=== PATIENT | female | born 1985 | race Caucasian/White ===

== ENCOUNTER 2023-11-03 18:11 | Inpatient (IN) ==
[2023-11-03] MEDS: SODIUM CHLORIDE 0.9% 1,000 ML IV ONE ×2 (18:52→20:15)
[2023-11-03 19:01] LABS: Basophils # (auto) 0.07 K/uL (0.00-0.20); Basophils % (auto) 0.4 %; Eosinophils # (auto) 0.05 K/uL (0.00-0.50); Eosinophils % (auto) 0.3 %; Hematocrit (blood only) 41.2 % (37.0-47.0); Hemoglobin 13.8 g/dl (12.0-16.0); Immature Granulocytes # (auto) 0.15 K/uL (0.01-0.20); Immature Granulocytes % (auto) 0.8 %; Lymphocytes # (auto) 0.91 K/uL (1.20-3.40); Lymphocytes % (auto) 4.9 %; Mean Corpuscular Hemoglobin 29.3 pg (25.0-34.0); Mean Corpuscular Hgb Conc 33.5 g/dL (32.0-36.0); Mean Corpuscular Volume 87.5 fL (80.0-100.0); Mean Platelet Volume 8.7 fL (9.4-12.4); Monocytes # (auto) 1.33 K/uL (0.11-0.59); Monocytes % (auto) 7.1 %; Neutrophils # (auto) 16.19 K/uL (1.40-6.50); Neutrophils % (auto) 86.5 %; Platelet Count 326 K/uL (130-400); RDW Coefficient of Variation 11.8 % (11.5-14.5); RDW Standard Deviation 37.9 fL (36.4-46.3); Red Blood Count 4.71 M/uL (4.20-5.40)
[2023-11-03 19:05] LABS: Appearance Urine Clear (Clear); Bacteria Urine Automated 1+ (None Seen); Bilirubin Urine Negative (Negative); Blood Urine Negative (Negative); Cast Urine Automated 0-2 /lpf (0-2); Color Urine Yellow; Epithelial Cell Urine Auto 0-2 /hpf (0-2); Glucose Urine UA Negative (Negative); Ketones Urine Negative (Negative); Leukocyte Esterase Urine 1+ (Negative); Nitrite Urine Negative (Negative); Protein Urine Trace (Negative); RBC Urine Automated 0-2 /hpf (0-2); Specific Gravity Urine 1.011 (1.000-1.030); Urobilinogen Urine Negative (Negative); WBC Urine Automated 21-50 /hpf (0-5); pH Urine 8.5 (4.5-7.5)
[2023-11-03 19:20] LABS: Albumin Globulin Ratio 1.5 (0.9-2); Albumin Level 4.4 gm/dl (3.4-5.0); BUN Creatinine Ratio 8.9 (10-20); Bilirubin,Total 1.1 mg/dl (0.2-1.0); Calcium 9.4 mg/dl (8.6-10.3); Est GFR (African American) 82.4 ml/min; Est GFR (Non-African American) 71.1 ml/min; Potassium 3.3 mmol/L (3.5-5.1); Total Protein 7.4 gm/dl (6.0-8.3)
[2023-11-03 19:26] LABS: Troponin I High Sensitivity 9.2 pg/ml (0-14)
--- NOTE | 2023-11-03 19:26 | Emergency Department Note ---
Impression & Plan Pyelonephritis, Sepsis ED Provider Note Provider: Hari Fortune MD DATE OF SERVICE: 11/03/2023 CHIEF COMPLAINT: Urinary symptoms, fever HISTORY OF PRESENT ILLNESS: Patient is a 38-year-old female referred from urgent care today due to developing urinary urgency frequency and dysuria over the past week. Today had left leg pain and increased fatigue as well as a fever 103 went to walk-in urgent care referred here. She has had UTIs and kidney infections in the past although last was about 12 years ago. Prior hysterectomy. No syncope reported. No vomiting reported. Denies chest pain or shortness of breath. Noted to be tachycardic upon arrival. Endorses some chills and fever earlier. Pain was so severe she had to take a dose of Percocet that she had previously. Did take Tylenol earlier as well. Pain in the left abdomen to the left and mid back region. [place] short of breath earlier but not currently. PAST MEDICAL HISTORY: As noted above MEDICATIONS: Reviewed home medications SOCIAL HISTORY: Smoker PHYSICAL EXAM: GENERAL: alert and oriented in no acute distress on stretcher Head: normocephalic and atraumatic EYES: No injection, discharge or icterus. NECK: Trachea midline. ENT: Mucous membranes pink and moist. LUNGS: Airway patent. No retractions. Breath sounds clear with good air entry bilaterally. HEART: Regular rate and rhythm. No chest wall tenderness ABDOMEN: Soft with some slight left abdominal pain. SKIN: Acyanotic, warm, dry, without rashes EXTREMITIES: Without swelling, tenderness or deformity NEUROLOGICAL: No focal deficits. No aphasia. No facial droop or slurred speech. Normal strength and tone in the extremities. Sensation to gross touch normal. Ambulatory. EK beats minute sinus tachycardia. No PVC or PAC. No acute ST segment elevation or depression with a QTc of 404. CONTINUOUS CARDIAC MONITORING: was ordered and showed a heart rate of 100s - 130s bpm in sinus tachycardia Patient's laboratory studies and imaging reviewed. Differential includes Renal colic, UTI, appendicitis, diverticulitis, mesenteric ischemia, aortic pathology, infections, inflammatory bowel disease, PUD, biliary pathology, as well as other pathologies. IMPRESSION/MEDICAL DECISION MAKING: Patient tachycardic upon arrival. 2.5 L of IV fluid ordered. Blood obtained including lactate and cultures. Lactate not elevated. Mild hyponatremia and hypokalemia but not severe. Normal renal function. No evidence of hepatitis/transaminitis. UA does appear concerning for infection. negative. White count of 18.7 concerning for developing pyelonephritis and sepsis picture. Given her pain to exclude kidney stone or other intra-abdominal process CT abdomen pelvis was ordered. Given a dose of IV ceftriaxone for antibiotic coverage. Troponin & EKG completed showing a sinus tachycardia --not SVT or other arrhythmia. Received again IV fluid and afebrile here but still tachycardic. Believe likely septic from pyelonephritis. CT abdomen pelvis report without significant acute findings noted. Patient on reevaluation appears somewhat fatigued and heart rate minimally improved around 110. Given what appears to be sepsis with pyelonephritis and discussed with her that while she is fairly young, given her significant symptoms further care here at the hospital. Hospitalist team contacted. DIAGNOSIS: Pyelonephritis, sepsis, tachycardia DISPOSITION: Hospitalist will evaluate Patient was agreeable with this plan. Past Med/Surg History Social History Smoking Status: Current every day smoker Feels Safe at Home: Yes Allergies Allergies Allergy/AdvReac Type Severity Reaction Status Date / Time No Known Allergies Allergy Unknown Verified 11/03/23 19:06 Home Meds Home Medications Medication Instructions Recorded Confirmed acetaminophen 500 mg tablet 1,000 mg PO Q6H PRN PAIN/FEVER 11/03/23 11/03/23 (Tylenol Extra Strength) dextroamphetamine-amphetamine 30 30 mg PO BID 11/03/23 11/03/23 mg tablet ibuprofen 200 mg tablet 600 mg PO Q6H PRN PAIN/FEVER 11/03/23 11/03/23 Results & Data (ED) Vital Signs Vital Signs - 24 hr 11/03/23 18:21 11/03/23 18:48 11/03/23 18:53 Temperature 37.2 C Temperature Source Temporal Artery Scan Pulse Rate 128 H 128 H Pulse Rate [Apical] 122 H Pulse Strength [Apical] Normal Respiratory Rate 18 18 Respiratory Effort / Characteristics Non-Labored Spontaneous Non-Labored Spontaneous Respiratory Depth Normal Normal Respiratory Pattern Regular Blood Pressure 122/76 Blood Pressure [Right Arm] 136/86 Blood Pressure Mean 91 Blood Pressure Mean [Right Arm] 102 Blood Pressure Position Sitting Pulse Oximetry 97 96 Oxygen Delivery Method Room Air Room Air Sepsis Recent Fever Within 48 Hours No Sepsis New/Unexplained Change in Mental Status N/A Sepsis Action Taken by Nursing No Action Required 11/03/23 18:55 11/03/23 19:59 11/03/23 21:21 Temperature 36.8 C 37.1 C Temperature Source Oral Oral Pulse Rate Pulse Rate [Apical] 109 H 101 H Pulse Strength [Apical] Normal Respiratory Rate 19 22 Respiratory Effort / Characteristics Non-Labored Spontaneous Non-Labored Spontaneous Respiratory Depth Normal Normal Respiratory Pattern Regular Blood Pressure Blood Pressure [Right Arm] 118/86 148/87 H Blood Pressure Mean Blood Pressure Mean [Right Arm] 96 107 Blood Pressure Position Pulse Oximetry 96 97 98 Oxygen Delivery Method Room Air Room Air Room Air Sepsis Recent Fever Within 48 Hours Sepsis New/Unexplained Change in Mental Status Sepsis Action Taken by Nursing 11/03/23 22:25 Temperature Temperature Source Pulse Rate Pulse Rate [Apical] 112 H Pulse Strength [Apical] Respiratory Rate 18 Respiratory Effort / Characteristics Non-Labored Spontaneous Respiratory Depth Normal Respiratory Pattern Blood Pressure Blood Pressure [Right Arm] 108/69 Blood Pressure Mean Blood Pressure Mean [Right Arm] 82 Blood Pressure Position Pulse Oximetry 98 Oxygen Delivery Method Room Air Sepsis Recent Fever Within 48 Hours Sepsis New/Unexplained Change in Mental Status Sepsis Action Taken by Nursing Laboratory Data 11/03/23 18:44 11/03/23 18:44 Lab Results 11/03/23 11/03/23 11/03/23 Range/Units 18:35 18:43 18:44 WBC 18.70 H (4.8-10.8) K/ul RBC 4.71 (4.20-5.40) M/uL Hgb 13.8 (12.0-16.0) g/dl Hct 41.2 (37.0-47.0) % MCV 87.5 (80.0-100.0) fL MCH 29.3 (25.0-34.0) pg MCHC 33.5 (32.0-36.0) g/dL RDW Std Deviation 37.9 (36.4-46.3) fL RDW Coeff of Alicia 11.8 (11.5-14.5) % Plt Count 326 (130-400) K/uL MPV 8.7 L (9.4-12.4) fL Immature Gran % (Auto) 0.8 % Neut % (Auto) 86.5 % Lymph % (Auto) 4.9 % [place] % (Auto) 7.1 % Eos % (Auto) 0.3 % Baso % (Auto) 0.4 % Neut # (Auto) 16.19 H (1.40-6.50) K/uL Lymph # (Auto) 0.91 L (1.20-3.40) K/uL [place] # (Auto) 1.33 H (0.11-0.59) K/uL Eos # (Auto) 0.05 (0.00-0.50) K/uL Baso # (Auto) 0.07 (0.00-0.20) K/uL Immature Gran # (Auto) 0.15 (0.01-0.20) K/uL PT 11.4 (9.0-12.0) Seconds INR 1.0 (0.9-1.1) APTT 28 (21-31) Seconds PTT Ratio 1.0 Sodium 134 L (136-145) mmol/L Potassium 3.3 L (3.5-5.1) mmol/L Chloride 100 (98-107) mmol/L Carbon Dioxide 25 (21-32) mmol/L Anion Gap 9 (3-11) BUN 9 (6-23) mg/dl Creatinine 1.01 (0.6-1.2) mg/dl Est Cr Clr Drug Dosing 77.0 ml/min Est GFR ( Amer) 82.4 ml/min Est GFR (Non-Af Amer) 71.1 ml/min BUN/Creatinine Ratio 8.9 L (10-20) Glucose 123 H (70-99(Fasting)) mg/dl Lactate (0.4-2.0) mmol/L Calcium 9.4 (8.6-10.3) mg/dl Total Bilirubin 1.1 H (0.2-1.0) mg/dl AST 14 (13-39) U/L ALT 14 (7-52) U/L Alkaline Phosphatase 92 (34-104) U/L Troponin I High Sens 9.2 (0-14) pg/ml Total Protein 7.4 (6.0-8.3) gm/dl Albumin 4.4 (3.4-5.0) gm/dl Globulin 3.0 (2.5-4.0) gm/dl Albumin/Globulin Ratio 1.5 (0.9-2) Procalcitonin 0.26 (0-0.5) ng/ml Urine Color Yellow Urine Appearance Clear (Clear) Urine pH 8.5 H (4.5-7.5) Ur Specific [place] 1.011 (1.000-1.030) Urine Protein Trace H (Negative) Urine Glucose (UA) Negative (Negative) Urine Ketones Negative (Negative) Urine Blood Negative (Negative) Urine Nitrite Negative (Negative) Urine Bilirubin Negative (Negative) Urine Urobilinogen Negative (Negative) Ur Leukocyte Esterase 1+ H (Negative) Urine WBC (Auto) 21-50 H (0-5) /hpf Urine RBC (Auto) 0-2 (0-2) /hpf U Hyaline Cast (Auto) 0-2 (0-2) /lpf U Epithel Cells (Auto) 0-2 (0-2) /hpf Urine Bacteria (Auto) 1+ H (None Seen) POC Ur Test NEG (NEG) 11/03/23 Range/Units 18:46 WBC (4.8-10.8) K/ul RBC (4.20-5.40) M/uL Hgb (12.0-16.0) g/dl Hct (37.0-47.0) % MCV (80.0-100.0) fL MCH (25.0-34.0) pg MCHC (32.0-36.0) g/dL RDW Std Deviation (36.4-46.3) fL RDW Coeff of Alicia (11.5-14.5) % Plt Count (130-400) K/uL MPV (9.4-12.4) fL Immature Gran % (Auto) % Neut % (Auto) % Lymph % (Auto) % [place] % (Auto) % Eos % (Auto) % Baso % (Auto) % Neut # (Auto) (1.40-6.50) K/uL Lymph # (Auto) (1.20-3.40) K/uL [place] # (Auto) (0.11-0.59) K/uL Eos # (Auto) (0.00-0.50) K/uL Baso # (Auto) (0.00-0.20) K/uL Immature Gran # (Auto) (0.01-0.20) K/uL PT (9.0-12.0) Seconds INR (0.9-1.1) APTT (21-31) Seconds PTT Ratio Sodium (136-145) mmol/L Potassium (3.5-5.1) mmol/L Chloride (98-107) mmol/L Carbon Dioxide (21-32) mmol/L Anion Gap (3-11) BUN (6-23) mg/dl Creatinine (0.6-1.2) mg/dl Est Cr Clr Drug Dosing ml/min Est GFR ( Amer) ml/min Est GFR (Non-Af Amer) ml/min BUN/Creatinine Ratio (10-20) Glucose (70-99(Fasting)) mg/dl Lactate 1.6 (0.4-2.0) mmol/L Calcium (8.6-10.3) mg/dl Total Bilirubin (0.2-1.0) mg/dl AST (13-39) U/L ALT (7-52) U/L Alkaline Phosphatase (34-104) U/L Troponin I High Sens (0-14) pg/ml Total Protein (6.0-8.3) gm/dl Albumin (3.4-5.0) gm/dl Globulin (2.5-4.0) gm/dl Albumin/Globulin Ratio (0.9-2) Procalcitonin (0-0.5) ng/ml Urine Color Urine Appearance (Clear) Urine pH (4.5-7.5) Ur Specific [place] (1.000-1.030) Urine Protein (Negative) Urine Glucose (UA) (Negative) Urine Ketones (Negative) Urine Blood (Negative) Urine Nitrite (Negative) Urine Bilirubin (Negative) Urine Urobilinogen (Negative) Ur Leukocyte Esterase (Negative) Urine WBC (Auto) (0-5) /hpf Urine RBC (Auto) (0-2) /hpf U Hyaline Cast (Auto) (0-2) /lpf U Epithel Cells (Auto) (0-2) /hpf Urine Bacteria (Auto) (None Seen) POC Ur Test (NEG) Administered Medications Discontinued Medications Sodium Chloride (Nss) 500 mls @ 999 mls/hr IV .Q31M STA Stop: 11/03/23 18:57 Last Infusion: 11/03/23 20:15 Dose: Infused Documented By: Admin: 11/03/23 19:33 Dose: 999 mls/hr Documented By: FORTINO Sodium Chloride (Nss) 1,000 mls @ 999 mls/hr IV .Q1H1M ONE Stop: 11/03/23 19:30 Last Infusion: 11/03/23 19:28 Dose: Infused Documented By: Admin: 11/03/23 18:52 Dose: 999 mls/hr Documented By: FORTINO Sodium Chloride (Nss) 1,000 mls @ 999 mls/hr IV .Q1H1M ONE Stop: 11/03/23 20:24 Last Infusion: 11/03/23 21:36 Dose: Infused Documented By: Admin: 11/03/23 20:15 Dose: 999 mls/hr Documented By: FORTINO Ceftriaxone Sodium (Rocephin) 2,000 mg in 50 mls @ 100 mls/hr IV NOW STA Stop: 11/03/23 19:58 Last Infusion: 11/03/23 20:15 Dose: Infused Documented By: Admin: 11/03/23 19:59 Dose: 100 mls/hr Documented By: FORTINO Imaging Data Radiologist's Impression: Abdomen/Pelvis CT 11/03/23 18:29 Exam(s): CT ABDOMEN + PELVIS Without Contrast EXAM: CT Abdomen and Pelvis Without Intravenous Contrast CLINICAL HISTORY: Reason for exam: UTI/flank pain. TECHNIQUE: Axial computed tomography images of the abdomen and pelvis without intravenous contrast. CTDI is 23.65 mGy and DLP is 1090.67 mGy-cm. Automated exposure control was utilized for the study. A dose lowering technique was utilized adhering to the principles of ALARA. COMPARISON: 09/10/11 FINDINGS: Lung bases: Unremarkable. No mass. No consolidation. ABDOMEN: Liver: Hepatomegaly. Gallbladder and bile ducts: Unremarkable. No calcified stones. No ductal dilation. Pancreas: Unremarkable. No ductal dilation. Spleen: Unremarkable. No splenomegaly. Adrenals: Unremarkable. No mass. Kidneys and ureters: Unremarkable. No hydronephrosis or radiopaque stones. Stomach and bowel: Sigmoid diverticulosis. No mucosal thickening. No bowel obstruction. PELVIS: Appendix: Normal appendix. Bladder: Unremarkable. No stones. Reproductive: Hysterectomy. ABDOMEN and PELVIS: Intraperitoneal space: Unremarkable. No free air. No significant fluid collection. Bones/joints: No acute fracture or dislocation. Soft tissues: Small fat-containing umbilical hernia. Vasculature: Unremarkable. No abdominal aortic aneurysm. Lymph nodes: Unremarkable. No enlarged lymph nodes. IMPRESSION: No acute findings in the abdomen or pelvis. Electronically signed by: Olamide Reno M.D. 11/03/23 20:22 PM Discharge Plan Visit Data Chief Complaint: Urinary Symptoms Stated Complaint: UTI, PAIN STOMACH, LEGS, FEVER ED Provider: Hari Fortune Discharge Problem: Pyelonephritis, Sepsis Patient Disposition: Being Evaluated by Hospitalist Forms Stand Alone Forms: [facility] Prescriptions Prescriptions: No Action acetaminophen [Tylenol Extra Strength] 500 mg Tablet 1,000 mg PO Q6H PRN (Reason: PAIN/FEVER) dextroamphetamine-amphetamine 30 mg tablet 30 mg PO BID ibuprofen 200 mg Tablet 600 mg PO Q6H PRN (Reason: PAIN/FEVER) Referrals Referrals: PCP,NO [Primary Care Provider] -
[2023-11-03 19:28] LABS: Partial Thromboplastin Time 28 Seconds (21-31); Prothrombin Time 11.4 Seconds (9.0-12.0)
[2023-11-03] MEDS: SODIUM CHLORIDE 0.9% 500 ML IV STA (19:33)
[2023-11-03] MEDS: cefTRIAXone SODIUM 2,000 MG/50 ML BAG IV STA (19:59)
[2023-11-03 20:11] LABS: Albumin Globulin Ratio 1.5 (0.9-2); Albumin Level 4.1 gm/dl (3.4-5.0); BUN Creatinine Ratio 9.3 (10-20); Creatinine Clr Calc Pharmacy 80.2 ml/min; Est GFR (African American) 86.5 ml/min; Est GFR (Non-African American) 74.6 ml/min; Globulin 2.8 gm/dl (2.5-4.0); Magnesium 1.5 mg/dl (1.7-2.4); Potassium 3.2 mmol/L (3.5-5.1); Total Protein 6.9 gm/dl (6.0-8.3)
--- NOTE | 2023-11-03 20:22 | CT Scan Report ---
Exam(s): CT ABDOMEN + PELVIS Without Contrast EXAM: CT Abdomen and Pelvis Without Intravenous Contrast CLINICAL HISTORY: Reason for exam: UTI/flank pain. TECHNIQUE: Axial computed tomography images of the abdomen and pelvis without intravenous contrast. CTDI is 23.65 mGy and DLP is 1090.67 mGy-cm. Automated exposure control was utilized for the study. A dose lowering technique was utilized adhering to the principles of ALARA. COMPARISON: 09/10/11 FINDINGS: Lung bases: Unremarkable. No mass. No consolidation. ABDOMEN: Liver: Hepatomegaly. Gallbladder and bile ducts: Unremarkable. No calcified stones. No ductal dilation. Pancreas: Unremarkable. No ductal dilation. Spleen: Unremarkable. No splenomegaly. Adrenals: Unremarkable. No mass. Kidneys and ureters: Unremarkable. No hydronephrosis or radiopaque stones. Stomach and bowel: Sigmoid diverticulosis. No mucosal thickening. No bowel obstruction. PELVIS: Appendix: Normal appendix. Bladder: Unremarkable. No stones. Reproductive: Hysterectomy. ABDOMEN and PELVIS: Intraperitoneal space: Unremarkable. No free air. No significant fluid collection. Bones/joints: No acute fracture or dislocation. Soft tissues: Small fat-containing umbilical hernia. Vasculature: Unremarkable. No abdominal aortic aneurysm. Lymph nodes: Unremarkable. No enlarged lymph nodes. IMPRESSION: No acute findings in the abdomen or pelvis. Electronically signed by: Olamide Reno M.D. 11/03/23 20:22 PM
--- NOTE | 2023-11-03 22:37 | History & Physical Report ---
Date of Service November 03, 2023 Assessment & Plan (1) Sepsis: Plan: 38-year-old female with past medical history significant for ADHD comes because of severe flank pains bilateral left greater than right since yesterday and today she was having high fevers and chills and not feeling well and some burning micturition. No blood in the urine. Normal bowel movements. The pain is radiating down into the groins . Has leg cramps. Denies any chest pain or shortness of breath. Currently no headache. Has some dizziness. No runny nose or sore throat or cough. No difficulty swallowing. No earaches. Vision is somewhat blurry. Tachycardic on presentation. No rash. Possible early sepsis Fevers, tachycardia, leukocytosis UTI Lactate is okay CT abdomen pelvis okay Empiric Rocephin IV fluids Pain control Close monitor ADHD On Adderall Tobacco abuse Needs counseling DVT prophylaxis Lovenox Disposition Med/telemetry Full code History of Present Illness Chief Complaint: Flank pain bilateral and fevers Primary Care Provider: NO PCP 38-year-old female with past medical history significant for ADHD comes because of severe flank pains bilateral left greater than right since yesterday and today she was having high fevers and chills and not feeling well and some burning micturition. No blood in the urine. Normal bowel movements. The pain is radiating down into the groins . Has leg cramps. Denies any chest pain or shortness of breath. Currently no headache. Has some dizziness. No runny nose or sore throat or cough. No difficulty swallowing. No earaches. Vision is somewhat blurry. Tachycardic on presentation. No rash. Past medical history. As mentioned above Past surgical history. ACL and MCL repair. Armesh in the right upper extremity as per patient. Surgical history. Smokes half pack a day for last 10 years. No alcohol. No drug use. Family history. Mother and father has hypertension and diabetes Allergies Allergy/AdvReac Type Severity Reaction Status Date / Time No Known Allergies Allergy Unknown Verified 11/03/23 19:06 Home Medications Medication Instructions Recorded Confirmed Type acetaminophen 500 mg tablet 1,000 mg PO Q6H PRN PAIN/FEVER 11/03/23 11/03/23 History (Tylenol Extra Strength) dextroamphetamine-amphetamine 30 30 mg PO BID 04/30/24 04/30/24 History mg tablet ibuprofen 200 mg tablet 600 mg PO Q6H PRN PAIN/FEVER 11/03/23 11/03/23 History Past Med/Surg History Social History Smoking Status: Current every day smoker Tobacco Type: Cigarettes Second Hand Exposure: No; Do You Dip or Chew Tobacco: No; Hx Alcohol Use: Yes Hx Substance Use: No Preferred Language: [place] Insecticide Maker Required: No Beliefs That Will Affect Care: None Current Living Situation: Significant Other Other Information That Helps Us Care for You: No Feels Safe at Home: Yes Safety Concerns: Feels Safe At This Time Assistive Devices: None Review of Systems Review of Systems: All systems reviewed & are unremarkable except as noted in HPI & below Physical Exam Physical Exam: General- Not in distress Head- atraumatic Eyes- PERRL. ENT- oropharynx clear Neck- supple, no JVD. Lungs- clear to auscultation no wheezing or crackles. Heart- regular rhythm; no murmur, no gallop. Abdomen- normal bowel sounds, soft, nontender, no distension. Extremities- no pretibial edema, no erythema seen. Neuro- alert, oriented PERRL, no facial palsy; no dysarthria; moves extremities. Results & Data Results & Data Vital Signs (Past 12 Hours) Vital Signs Temp Pulse Pulse Resp BP BP Pulse Ox 11/03/23 21:21 37.1 C 101 H 22 148/87 H 98 11/03/23 19:59 36.8 C 109 H 19 118/86 97 11/03/23 18:55 96 11/03/23 18:53 122 H 18 136/86 96 11/03/23 18:48 128 H 11/03/23 18:21 37.2 C 128 H 18 122/76 97 O2 Del Method 11/03/23 21:21 Room Air 11/03/23 19:59 Room Air 11/03/23 18:55 Room Air 11/03/23 18:53 Room Air 11/03/23 18:48 11/03/23 18:21 Room Air Diagnostic Findings Laboratory Results WBC 18.70 K/ul (4.8-10.8) H 11/03/23 18:44 RBC 4.71 M/uL (4.20-5.40) 11/03/23 18:44 Hgb 13.8 g/dl (12.0-16.0) 11/03/23 18:44 Hct 41.2 % (37.0-47.0) 11/03/23 18:44 MCV 87.5 fL (80.0-100.0) 11/03/23 18:44 MCH 29.3 pg (25.0-34.0) 11/03/23 18:44 MCHC 33.5 g/dL (32.0-36.0) 11/03/23 18:44 RDW Std Deviation 37.9 fL (36.4-46.3) 11/03/23 18:44 RDW Coeff of Alicia 11.8 % (11.5-14.5) 11/03/23 18:44 Plt Count 326 K/uL (130-400) 11/03/23 18:44 MPV 8.7 fL (9.4-12.4) L 11/03/23 18:44 Immature Gran % (Auto) 0.8 % 11/03/23 18:44 Neut % (Auto) 86.5 % 11/03/23 18:44 Lymph % (Auto) 4.9 % 11/03/23 18:44 [place] % (Auto) 7.1 % 11/03/23 18:44 Eos % (Auto) 0.3 % 11/03/23 18:44 Baso % (Auto) 0.4 % 11/03/23 18:44 Neut # (Auto) 16.19 K/uL (1.40-6.50) H 11/03/23 18:44 Lymph # (Auto) 0.91 K/uL (1.20-3.40) L 11/03/23 18:44 [place] # (Auto) 1.33 K/uL (0.11-0.59) H 11/03/23 18:44 Eos # (Auto) 0.05 K/uL (0.00-0.50) 11/03/23 18:44 Baso # (Auto) 0.07 K/uL (0.00-0.20) 11/03/23 18:44 Immature Gran # (Auto) 0.15 K/uL (0.01-0.20) 11/03/23 18:44 PT 11.4 Seconds (9.0-12.0) 11/03/23 18:44 INR 1.0 (0.9-1.1) 11/03/23 18:44 APTT 28 Seconds (21-31) 11/03/23 18:44 PTT Ratio 1.0 11/03/23 18:44 Sodium 134 mmol/L (136-145) L 11/03/23 18:44 Potassium 3.3 mmol/L (3.5-5.1) L 11/03/23 18:44 Chloride 100 mmol/L (98-107) 11/03/23 18:44 Carbon Dioxide 25 mmol/L (21-32) 11/03/23 18:44 Anion Gap 9 (3-11) 11/03/23 18:44 BUN 9 mg/dl (6-23) 11/03/23 18:44 Creatinine 1.01 mg/dl (0.6-1.2) 11/03/23 18:44 Est Cr Clr Drug Dosing 77.0 ml/min 11/03/23 18:44 Est GFR ( Amer) 82.4 ml/min 11/03/23 18:44 Est GFR (Non-Af Amer) 71.1 ml/min 11/03/23 18:44 BUN/Creatinine Ratio 8.9 (10-20) L 11/03/23 18:44 Glucose 123 mg/dl (70-99(Fasting)) H 11/03/23 18:44 Lactate 1.6 mmol/L (0.4-2.0) 11/03/23 18:46 Calcium 9.4 mg/dl (8.6-10.3) 11/03/23 18:44 Total Bilirubin 1.1 mg/dl (0.2-1.0) H 11/03/23 18:44 AST 14 U/L (13-39) 11/03/23 18:44 ALT 14 U/L (7-52) 11/03/23 18:44 Alkaline Phosphatase 92 U/L (34-104) 11/03/23 18:44 Troponin I High Sens 9.2 pg/ml (0-14) 11/03/23 18:44 Total Protein 7.4 gm/dl (6.0-8.3) 11/03/23 18:44 Albumin 4.4 gm/dl (3.4-5.0) 11/03/23 18:44 Globulin 3.0 gm/dl (2.5-4.0) 11/03/23 18:44 Albumin/Globulin Ratio 1.5 (0.9-2) 11/03/23 18:44 Procalcitonin 0.26 ng/ml (0-0.5) 11/03/23 18:44 Urine Color Yellow 11/03/23 18:35 Urine Appearance Clear (Clear) 11/03/23 18:35 Urine pH 8.5 (4.5-7.5) H 11/03/23 18:35 Ur Specific [place] 1.011 (1.000-1.030) 11/03/23 18:35 Urine Protein Trace (Negative) H 11/03/23 18:35 Urine Glucose (UA) Negative (Negative) 11/03/23 18:35 Urine Ketones Negative (Negative) 11/03/23 18:35 Urine Blood Negative (Negative) 11/03/23 18:35 Urine Nitrite Negative (Negative) 11/03/23 18:35 Urine Bilirubin Negative (Negative) 11/03/23 18:35 Urine Urobilinogen Negative (Negative) 11/03/23 18:35 Ur Leukocyte Esterase 1+ (Negative) H 11/03/23 18:35 Urine WBC (Auto) 21-50 /hpf (0-5) H 11/03/23 18:35 Urine RBC (Auto) 0-2 /hpf (0-2) 11/03/23 18:35 U Hyaline Cast (Auto) 0-2 /lpf (0-2) 11/03/23 18:35 U Epithel Cells (Auto) 0-2 /hpf (0-2) 11/03/23 18:35 Urine Bacteria (Auto) 1+ (None Seen) H 11/03/23 18:35 POC Ur Test NEG (NEG) 11/03/23 18:43 Impressions Abdomen/Pelvis CT 11/03/23 18:29 Exam(s): CT ABDOMEN + PELVIS Without Contrast EXAM: CT Abdomen and Pelvis Without Intravenous Contrast CLINICAL HISTORY: Reason for exam: UTI/flank pain. TECHNIQUE: Axial computed tomography images of the abdomen and pelvis without intravenous contrast. CTDI is 23.65 mGy and DLP is 1090.67 mGy-cm. Automated exposure control was utilized for the study. A dose lowering technique was utilized adhering to the principles of ALARA. COMPARISON: 09/10/11 FINDINGS: Lung bases: Unremarkable. No mass. No consolidation. ABDOMEN: Liver: Hepatomegaly. Gallbladder and bile ducts: Unremarkable. No calcified stones. No ductal dilation. Pancreas: Unremarkable. No ductal dilation. Spleen: Unremarkable. No splenomegaly. Adrenals: Unremarkable. No mass. Kidneys and ureters: Unremarkable. No hydronephrosis or radiopaque stones. Stomach and bowel: Sigmoid diverticulosis. No mucosal thickening. No bowel obstruction. PELVIS: Appendix: Normal appendix. Bladder: Unremarkable. No stones. Reproductive: Hysterectomy. ABDOMEN and PELVIS: Intraperitoneal space: Unremarkable. No free air. No significant fluid collection. Bones/joints: No acute fracture or dislocation. Soft tissues: Small fat-containing umbilical hernia. Vasculature: Unremarkable. No abdominal aortic aneurysm. Lymph nodes: Unremarkable. No enlarged lymph nodes. IMPRESSION: No acute findings in the abdomen or pelvis. Electronically signed by: Olamide Reno M.D. 11/03/23 20:22 PM Code Status & VTE Plan VTE Prophylaxis Plan VTE Prophylaxis will be ordered: Yes
[2023-11-03] MEDS ORDERED: POLYETHYLENE (MIRALAX) 17 GM PACK PO PRN (23:09)
[2023-11-03] MEDS ORDERED: NITROGLYCERIN SL 0.4 MG/TAB TAB SL PRN (23:09)
[2023-11-03] MEDS: SODIUM CHLORIDE 0.9% 1,000 ML IV SCH (23:25)
[2023-11-03] MEDS: KETOROLAC TROMETHAMINE 15 MG/ML VIAL IV PRN (23:29)
[2023-11-04] MEDS: ENOXAPARIN INJ 40 MG/0.4 ML SYR SQ SCH (00:10)
[2023-11-04] MEDS: ACETAMINOPHEN 325 MG TAB PO PRN (03:45)
[2023-11-04] MEDS: DEXTROAMPHETAMINE/AMPHETAMINE IR 10 MG TAB PO SCH (09:23)
[2023-11-04] MEDS: POTASSIUM CHLORIDE CRTAB 20 MEQ TABCR PO STA (09:23)
[2023-11-04] MEDS: PIPERACILLIN/TAZOBACTAM 4.5 GM in DEXTROSE 5% MINI-B 100 ML IV SCH (12:14)
--- NOTE | 2023-11-04 14:29 | Hospitalist Progress Note ---
Date of Service November 04, 2023 Assessment & Plan (1) Sepsis: Plan: 38-year-old female with past medical history significant for ADHD comes because of severe flank pains bilateral left greater than right since yesterday and today she was having high fevers and chills. Complicated UTI Patient presented with severe bilateral flank pain, lower abdominal pain and burning sensation while urination Leukocytosis present Urine suggestive of infection Urine culture growing gram-negative bacilli CT abdomen and pelvisno acute finding Continue on Zosyn, IV fluids Pain control Will follow-up on final urine culture and blood culture ADHD On Adderall, continue Tobacco abuse Needs counseling DVT prophylaxis Lovenox Disposition Med/telemetry Full code Please note the above document was generated using voice recognition software. It may contain grammatical, syntax or spelling errors. Any formal questions or concerns about the content, text or information contained within the body of this dictation should be directly addressed to the provider for clarification Admission and Anticipated Discharge Date Admission Date: November 03, 2023 Subjective Patient seen and examined at bedside She continues to report tiredness and fatigue. She reports that her burning sensation in the urine has improved. Continues to report flank pain. Review of Systems Review of Systems: All systems reviewed & are unremarkable except as noted in Subjective Physical Exam Physical Exam: Constitutional: WD/WN, vitals as above, NAD, sitting up in bed, pleasant, conversing easily Respiratory: normal respiratory effort, lungs clear to auscultation, no wheeze, rales, rhonchi. Normal insp/exp effort, no accessory muscle use Cardiovascular: RRR, no murmur, no edema Vessels: no JVD or carotid bruit Chest: normal inspection of chest Abdomen: Lower abdominal tenderness. Tenderness in costovertebral angle. Musculoskeletal: no cyanosis or clubbing, extremities motor strength 5/5 Skin: no rashes, warm and dry normal turgor Neurologic: PERRL, EOMI, accommodation nl, no face palsy, no dysarthria CN's II- XI intact bilaterally and moves all extremities Psychiatric: A+Ox3, euthymic affect Results & Data Results & Data Vital Signs (Past 12 Hours) Vital Signs Temp Pulse Pulse Resp BP Pulse Ox O2 Del Method 11/04/23 11:23 37.1 C 101 H 18 136/89 99 Room Air 11/04/23 08:40 Room Air 11/04/23 08:12 36.9 C 109 H 18 129/83 97 Room Air 11/04/23 07:52 118 H 11/04/23 03:43 36.9 C 108 H 18 136/79
[2023-11-04] MEDS ORDERED: cefTRIAXone SODIUM 2,000 MG/50 ML BAG IV SCH (19:00)
--- OUTSIDE RECORDS SUMMARY | 2023-11-05 03:29 | External Medical Summary | Continuity of Care Document ---
Author Name Unknown Organization [facility] Address [address] [place] [address] Phone [phone] Problems Active Problems Provider Date Tobacco user Isaias Galindo JR, MD Onset: 0 10/08/2017 Attention deficit hyperactiv ity disorder, predominantly inattentive type Isaias Galindo JR, MD Onset: 10/13/2017 Arthralgia of the pelvic region and thigh Isaias Galindo JR, MD Onset: 11/12/2017 Social History Type Date Description Comments Sex Unknown Tobacco Use Reviewed: 11/20/22 Light tobacco smoker (10 or fewer cigarettes/day) Tobacco Use Reviewed: 11/20/22 Never Smoked Cigars Tobacco Use Reviewed: 11/20/22 Never Smoked A Pipe Smoking Status Reviewed: 11/20/22 Never Smoked A Pipe Smokeless Tobacco 11/20/2022 Never Used Smokeless To bacco ETOH Use Rarely consumes alcohol Recreational Drug Use Denies Drug Use Enjoy Exercising Does not enjoy exercisin g Sun Exposure moderate amount of sun expos ure Sun Exposure Uses sunscreen Allergies and adverse reactions Description No Known Drug Allergies Medications Active Medications SIG Qnty Indications Order ing Provider Date [id number] Tablets one by mouth three times a day with food for pain 60tabs K02.9 Shahram Mac MD 03/29/2021 Amphetamine-Dextroamp [id number] Tablets take 1 tablet by mouth twice daily for continued therapy 60tabs Elsie Xie MD 12/20/2020 Bupropion Hydrochloride ER (SR)150mg Tablets ER 12HR take one tablet by mouth once daily 90tabs F43.22 Elsie Xie MD 02/10/[id number] take 1 capsule by mouth twice daily before meals 180caps Elsie Sabeeh, MD 05/13/2019 [id number] Tablets take 1 tablet by mouth twice daily 30 minutes before a meal 60tabs E78.1 Elsie Xie MD 10/18/2018 Medications Administered in Office Medication SIG Qnty Indications Ordering Provider Date Rocephin Inj 250 MGInjection CAR Villagran 01/13/2020 Immunizations CPT Code Status Date Vaccine Reaction Lot # [id number] Given 07/01/2021 TB Intradermal Test [id number] Given 06/12/2021 Influenza Virus Vaccine, Quadrivalent (Cciiv4), Derived From 5 Given 06/10/2021 TB Intradermal Test 0 mm, negative read by AAR on 06/12/2021 [id number] Given 05/29/2021 Moderna Sars-Co v-2 (Cov-19) vacc,100 mcg/ 0.5 mL 12Y+EMR Doc Only [id number] Given 10/19/2020 Moderna Sars-Co v-2 (Cov-19) vacc,100 mcg/ 0.5 mL 12Y+EMR Doc Only [id number] Given 09/21/2020 Moderna Sars-Co v-2 (Cov-19) vacc,100 mcg/ 0.5 mL 12Y+EMR Doc Only [id number] Given 10/07/2019 Tdap (Tetanus, diphtheria & acel. pertussis) Adacel or Boostrix [id number] Refused 10/07/2019 Influenza Vaccine-Administered at another facility U-FLU Refused 10/08/2017 Influenza,Unspecified Vital Signs Date Vital Result Comment 11/20/2022 4:43pm BP Systolic 122 mmHg BP Diastolic 74 mmHg Body Temperature 97.8 F Heart Rate 91 /min Respiratory Rate 16 /min Weight 160.50 lb Weight 72.803 kg Height 64 inches 5'4" BMI (Body Mass Index) 27.5 kg/m2 O2 % BldC Oximetry 99 % Beason Body Weight 120 lb 06/26/2022 8:31am BP Systolic 138 mmHg BP Diastolic 78 mmHg Body Temperature 97.5 F Heart Rate 111 /min Respiratory Rate 18 /min Weight 160.00 lb Weight 72.576 kg Height 64 inches 5'4" BMI (Body Mass Index) 27.5 kg/m2 O2 % BldC Oximetry 98 % Beason Body Weight 120 lb Procedures Date Code Description Status 01/16/2023 G2012 Phone Evaluation/Management By Physician 21-30 Min Completed Medical Devices Description No Information Available Encounters Type Date Location Provider Dx Diagnosis Office Visit 07/07/2023 3:15p Denis Xie MD F90.0 Attn-defct hyperactivity disorder, predom inattentive type E78.5 Hyperlipidemia, unsp ecified F41.9 Anxiety disorder, un specified F32.A Depression, unspecif ied Office Visit 01/16/2023 2:15p Denis smith MD N92.6 Irregular menstruation, unspecified F90.0 Attn-defct hyperacti vity disorder, predom inattentive type E78.5 Hyperlipidemia, unsp ecified F41.9 Anxiety disorder, un specified Assessments Date Code Description Provider 07/07/2023 F90.0 Attention-defici t hyperactivity disorder, predominantly sylwiat Elsie Xie MD 07/07/2023 E78.5 Hyperlipidemia, preetified Eslie Xie MD 07/07/2023 F41.9 Anxiety disorder, unspecifie d Elsie Xie MD 07/07/2023 F32.A Depression, unspecified Moses Xie MD 01/16/2023 N92.6 Irregular menstruation, unsp ecified Elsie Xie MD 01/16/2023 F90.0 Attention-defici t hyperactivity disorder, predominantly sylwiat Elsie Xie MD 01/16/2023 E78.5 Hyperlipidemia, unspecified Elsie Xie MD 01/16/2023 F41.9 Anxiety disorder, unspecifie d Elsie Xie MD Plan of Treatment No Information Available Functional Status Description No Information Available Mental Status Description No Information Available Referrals Description No Information Available
[2023-11-05 06:34] LABS: Basophils # (auto) 0.07 K/uL (0.00-0.20); Basophils % (auto) 0.4 %; Eosinophils # (auto) 0.29 K/uL (0.00-0.50); Eosinophils % (auto) 1.6 %; Hematocrit (blood only) 36.6 % (37.0-47.0); Hemoglobin 12.2 g/dl (12.0-16.0); Immature Granulocytes # (auto) 0.12 K/uL (0.01-0.20); Immature Granulocytes % (auto) 0.7 %; Lymphocytes # (auto) 1.21 K/uL (1.20-3.40); Lymphocytes % (auto) 6.6 %; Mean Corpuscular Hemoglobin 29.5 pg (25.0-34.0); Mean Corpuscular Hgb Conc 33.3 g/dL (32.0-36.0); Mean Corpuscular Volume 88.6 fL (80.0-100.0); Mean Platelet Volume 8.9 fL (9.4-12.4); Monocytes # (auto) 1.46 K/uL (0.11-0.59); Neutrophils # (auto) 15.21 K/uL (1.40-6.50); Neutrophils % (auto) 82.7 %; Platelet Count 263 K/uL (130-400); RDW Coefficient of Variation 12.2 % (11.5-14.5); RDW Standard Deviation 39.5 fL (36.4-46.3); Red Blood Count 4.13 M/uL (4.20-5.40); White Blood Count 18.36 K/ul (4.8-10.8)
[2023-11-05 07:05] LABS: BUN Creatinine Ratio 8.8 (10-20); Calcium 8.2 mg/dl (8.6-10.3); Est GFR (African American) 93.4 ml/min; Est GFR (Non-African American) 80.6 ml/min; Potassium 3.6 mmol/L (3.5-5.1)
[2023-11-05] MEDS: ACETAMINOPHEN 325 MG TAB PO SCH (12:14)
--- NOTE | 2023-11-05 13:00 | Hospitalist Progress Note ---
Date of Service November 05, 2023 Assessment & Plan (1) Sepsis: Plan: 38-year-old female with past medical history significant for ADHD comes because of severe flank pains bilateral left greater than right since yesterday and today she was having high fevers and chills. Complicated UTI Possible pyelonephritis Patient presented with severe bilateral flank pain, lower abdominal pain and burning sensation while urination Leukocytosis present on admission Urine suggestive of infection Urine culture growing E. coli sensitive to ceftriaxone, fluoroquinolone CT abdomen and pelvisno acute finding Blood cultureno growth till date Continue on ceftriaxone. Patient will likely need 7 to 10 days of antibiotics due to possible pyelonephritis Continue IV antibiotics for today; possible transition to oral tomorrow a.m. To ciprofloxacin. ADHD On Adderall, continue Tobacco abuse Needs counseling DVT prophylaxis Lovenox Disposition Med/telemetry Full code Please note the above document was generated using voice recognition software. It may contain grammatical, syntax or spelling errors. Any formal questions or concerns about the content, text or information contained within the body of this dictation should be directly addressed to the provider for clarification Admission and Anticipated Discharge Date Admission Date: November 03, 2023 Subjective Patient seen and examined at bedside. She reports that she has bilateral flank pain and reports fever with chills overnight Review of Systems Review of Systems: All systems reviewed & are unremarkable except as noted in Subjective Physical Exam Physical Exam: Constitutional: WD/WN, vitals as above, NAD, sitting up in bed, pleasant, conversing easily Respiratory: normal respiratory effort, lungs clear to auscultation, no wheeze, rales, rhonchi. Normal insp/exp effort, no accessory muscle use Cardiovascular: RRR, no murmur, no edema Vessels: no JVD or carotid bruit Chest: normal inspection of chest Abdomen: Lower abdominal tenderness. Tenderness in bilateral costovertebral angle. Musculoskeletal: no cyanosis or clubbing, extremities motor strength 5/5 Skin: no rashes, warm and dry normal turgor Neurologic: PERRL, EOMI, accommodation nl, no face palsy, no dysarthria CN's II- XI intact bilaterally and moves all extremities Psychiatric: A+Ox3, euthymic affect Results & Data Results & Data Vital Signs (Past 12 Hours) Vital Signs Temp Pulse Pulse Resp BP Pulse Ox O2 Del Method 11/05/23 11:26 37.3 C 104 H 18 127/81 97 Room Air 11/05/23 07:58 37.3 C 57 L 18 126/85 97 Room Air 11/05/23 07:35 Room Air 11/05/23 07:14 78 11/05/23 04:03 37.3 C 101 H 20 117/74 92 Room Air
[2023-11-05] MEDS: cefTRIAXone SODIUM 2,000 MG/50 ML BAG IV SCH (14:34)
--- NOTE | 2023-11-05 17:38 | Discharge Summary ---
Date of Service November 05, 2023 Admission HPI Per Admitting Provider 38-year-old female with past medical history significant for ADHD comes because of severe flank pains bilateral left greater than right since yesterday and today she was having high fevers and chills and not feeling well and some burning micturition. No blood in the urine. Normal bowel movements. The pain is radiating down into the groins . Has leg cramps. Denies any chest pain or shortness of breath. Currently no headache. Has some dizziness. No runny nose or sore throat or cough. No difficulty swallowing. No earaches. Vision is somewhat blurry. Tachycardic on presentation. No rash. Past medical history. As mentioned above Past surgical history. ACL and MCL repair. Raemsh in the right upper extremity as per patient. Surgical history. Smokes half pack a day for last 10 years. No alcohol. No d rug use. Family history. Mother and father has hypertension and diabetes Admission Exam Per Admitting Provider General- Not in distress Head- atraumatic Eyes- PERRL. ENT- oropharynx clear Neck- supple, no JVD. Lungs- clear to auscultation no wheezing or crackles. Heart- regular rhythm; no murmur, no gallop. Abdomen- normal bowel sounds, soft, nontender, no distension. Extremities- no pretibial edema, no erythema seen. Neuro- alert, oriented PERRL, no facial palsy; no dysarthria; moves extremities. Principal Diagnosis Bilateral Pyelonephritis Discharge Exam Constitutional: WD/WN, vitals as above, NAD, sitting up in bed, pleasant, conversing easily Respiratory: normal respiratory effort, lungs clear to auscultation, no wheeze, rales, rhonchi. Normal insp/exp effort, no accessory muscle use Cardiovascular: RRR, no murmur, no edema Vessels: no JVD or carotid bruit Chest: normal inspection of chest Abdomen: Lower abdominal tenderness. Tenderness in bilateral costovertebral angle. Musculoskeletal: no cyanosis or clubbing, extremities motor strength 5/5 Skin: no rashes, warm and dry normal turgor Neurologic: PERRL, EOMI, accommodation nl, no face palsy, no dysarthria CN's II- XI intact bilaterally and moves all extremities Psychiatric: A+Ox3, euthymic affect Discharge Data Allergies Allergy/AdvReac Type Severity Reaction Status Date / Time No Known Allergies Allergy Unknown Verified 11/03/23 19:06 Consultations 11/03/23 21:05 ED Decision to Admit Stat Ordered Studies 11/03/23 18:29 CT Abd and Pelvis [CT abd pelvis wo con] Stat Hospital Course (1) Sepsis: 38-year-old female with past medical history significant for ADHD comes because of severe flank pains bilateral left greater than right since yesterday and toda y she was having high fevers and chills. Complicated UTI Possible pyelonephritis Patient presented with severe bilateral flank pain, lower abdominal pain and burning sensation while urination Leukocytosis present on admission Urine analysis suggestive of infection Urine culture growing E. coli sensitive to ceftriaxone, fluoroquinolone CT abdomen and pelvisno acute finding Blood cultureno growth till date During the hospitalization, She was treated with iv antibiotics. Patient reported slight improvement in the symptoms with improvement in costovertebral angle tenderness and improvement in burning sensation while urination. However, her WBC count was still elevated and she reported fever overnight. Vitals reviewed; did not show any documented fever. I recommended the patient to to continue to remain hospitalized for IV antibiotics given her recent fever and persistant leukocytosis. I also recommended that we follow-up on the blood culture. I explained to her that the risks of foregoing IV antibiotics could lead to severe sepsis, multiorgan failure and . Patient was alert oriented x 3. She verbalized understanding and understood the risks. She still wanted to leave the hospital Against Medical Advice. I prescribed her ciprofloxacin for 7 days. I requested her to follow- up with her primary care doctor as soon as possible. Please note the above document was generated using voice recognition software. It may contain grammatical, syntax or spelling errors. Any formal questions or concerns about the content, text or information contained within the body of this dictation should be directly addressed to the provider for clarification Total Time Total Time Spent Total Time Spent (In Minutes): 34 Total Time Includes: Examination of the Patient, Discharge Planning, Medication Reconciliation, Communication With Other Providers and Other Discharge Plan Discharge Items Patient Disposition: Against Medical Advice Reason For Visit: UTI, PYELO/SEPSIS Activity: Resume your previous activity Non-emergency contact: Primary Care Provider Follow-up/Referrals: Elsie Xie MD [Outside Practitioners] - Pending Studies at Discharge: No Stand-Alone Forms: My [facility], Smoking Cessation Medications and DC Order Prescriptions: New ciprofloxacin HCl 500 mg tablet 500 mg PO BID 7 Days Qty: 14 0RF Continued acetaminophen [Tylenol Extra Strength] 500 mg Tablet 1,000 mg PO Q6H PRN (Reason: PAIN/FEVER) dextroamphetamine-amphetamine 30 mg tablet 30 mg PO BID ibuprofen 200 mg Tablet 600 mg PO Q6H PRN (Reason: PAIN/FEVER) Discharge Orders: Left Against Medical Advice (Routine); Ordered 11/05/23 Ordered By: Luis A Moore Admission Data Admit Date/Time: 11/03/23 22:05 Attending Provider: Luis A Moore Admit Provider: Kenneth Sheth Primary Care Provider: PCP,NO Other Providers: Kenneth Sheth
--- NOTE | 2023-11-06 08:50 | Electrocardiogram Report ---
Test Reason : Blood Pressure : / mmHG Vent. Rate : 131 BPM Atrial Rate : 131 BPM P-R Int : 134 ms QRS Dur : 076 ms QT Int : 274 ms P-R-T Axes : 065 -03 -05 degrees QTc Int : 404 ms Sinus tachycardia Minimal voltage criteria for LVH, may be normal variant ( R in aVL ) Cannot rule out Anterior infarct , age undetermined Abnormal ECG No previous ECGs available Confirmed by Bc Licea ([id number]) on 11/06/2023 8:50:17 AM Referred By: REFERRED SELF Confirmed By:Bc Licea
== END 2023-11-05 17:33 | disposition left against medical advice (07) | DRG 872 ==
LOC: ED 18:11 → 2N 22:05